=== PATIENT | male | born 2000 | race Caucasian/White ===

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

== ENCOUNTER 2022-11-29 05:12 | Emergency (ER) | payer SELFPAY ==
[2022-11-29] MEDS ORDERED: NA CHLORIDE 0.9% 1,000 ML ONE (05:59)
[2022-11-29] MEDS ORDERED: ONDANSETRON 4 MG/2 ML VIAL ONE (05:59)
--- NOTE | 2022-11-29 06:13 | ER ---
Nurse's Notes [facility] Name: Jacques Olivares Age: 22 yrs Sex: Male : 2000 Arrival Date: 11/29/2022 Time: 05:18 Bed 6 Private MD: Diagnosis: Diarrhea, unspecified;Vomiting Presentation: 11/29 05:29 Chief complaint: Patient states: My daughter was here a few days ago with similar kd3 symptoms and yall told us it was just a bug, so i may have gotten it from her. but i have been vomiting and i have been having loose stools for a couple of days. I also have a sharp pain in my upper stomach area. Ebola Screen: No symptoms or risks identified at this time. Risk Assessment: Do you want to hurt yourself or someone else? Patient reports no desire to harm self or others. Onset of symptoms was November 29, 2022. 05:29 Method Of Arrival: Ambulatory kd3 05:29 Acuity: IQRA 3 kd3 05:31 Coronavirus screen: Vaccine status: Patient reports being unvaccinated. kd3 06:44 Initial Sepsis Screen: Does the patient meet any 2 criteria? No. Patient's initial ll3 sepsis screen is negative. Does the patient have a suspected source of infection? No. Patient's initial sepsis screen is negative. Triage Assessment: 05:31 General: Appears in no apparent distress. Behavior is calm, cooperative. Pain: kd3 Complains of pain in epigastric area. Neuro: Level of Consciousness is awake, alert, obeys commands, Oriented to person, place, time, situation. Cardiovascular: Capillary refill < 3 seconds in bilateral fingers. GI: Reports diarrhea, vomiting. Historical: - Allergies: 05:31 No Known Allergies; kd3 - Home Meds: 05:31 None [Active]; kd3 - PMHx: 05:31 ADD/ADHD; kd3 - Immunization history:: Adult Immunizations up to date. - Social history:: Smoking status: Patient reports the use of cigarette tobacco products, smokes one pack cigarettes per day. Screenin:43 [facility] ED Fall Risk Assessment (Adult) History of falling in the last 3 months, ll3 including since admission No falls in past 3 months (0 pts) Score/Fall Risk Level 0 - 2 = Low Risk Oriented to surroundings, Maintained a safe environment. Abuse screen: Denies threats or abuse. Denies injuries from another. Nutritional screening: No deficits noted. Tuberculosis screening: No symptoms or risk factors identified. Assessment: 05:37 General: Appears uncomfortable, Behavior is calm, cooperative. Pain: Complains of pain ll3 in epigastric area Pain does not radiate. Pain currently is 2 out of 10 on a pain scale. Quality of pain is described as sharp, Pain began 2-3 days ago. Is continuous. Neuro: Level of Consciousness is awake, alert, obeys commands, Oriented to person, place, time, situation. GI: Reports upper abdominal pain, nausea, vomiting. GI: Abdomen is round non-distended. Derm: Skin is pink, warm \T\ dry. Vital Signs: 05:32 Weight 68.04 kg; Height 5 ft. 6 in. (167.64 cm); Pain 2/10; kd3 05:32 BP 133 / 94; Pulse 73; Resp 16; Temp 99; Pulse Ox 100% on R/A; kd3 06:44 BP 120 / 75; Pulse 62; Resp 17; Pulse Ox 100% on R/A; ll3 05:32 Body Mass Index 24.21 (68.04 kg, 167.64 cm) kd3 ED Course: 05:18 Patient arrived in ED. ja2 05:31 Triage completed. kd3 05:31 Arm band placed on. kd3 05:43 Tyler Boswell MD is Attending Physician. [facility] 05:58 Inserted saline lock: 18 gauge in left antecubital area, using aseptic technique. 06:43 Patient has correct armband on for positive identification. Placed in gown. Bed in low ll3 position. Call light in reach. Side rails up X 1. 06:43 No provider procedures requiring assistance completed. IV discontinued, intact, ll3 bleeding controlled, No redness/swelling at site. Pressure dressing applied. Administered Medications: 06:00 Drug: NS 0.9% 1000 ml Route: IV; Rate: 1 bolus; Site: right antecubital; ll3 06:38 Follow up: Response: No adverse reaction; IV Status: Completed infusion; IV Intake: ll3 1000ml 06:01 Drug: Zofran (Ondansetron) 4 mg Route: IVP; Site: right antecubital; ll3 06:38 Follow up: Response: No adverse reaction; Marked relief of symptoms ll3 Medication: 06:44 VIS not applicable for this client. ll3 Intake: 06:38 IV: 1000ml; Total: 1000ml. ll3 Outcome: 06:12 Discharge ordered by . claudette 06:43 Discharged to home ambulatory. ll3 06:43 Condition: improved 06:43 Discharge instructions given to patient, Instructed on discharge instructions, follow up and referral plans. medication usage, Demonstrated understanding of instructions, follow-up care, medications, Prescriptions given X 1. 06:45 Patient left the ED. ll3 Signatures: Faby Morris RN Tyler Gutiérrez MD MD cha Alexander, Jessica ja2 Loubet, Lynsea, RN RN ll3 Roxanne Basilio RN RN kd3 Corrections: (The following items were deleted from the chart) 05:31 05:29 Coronavirus screen: Vaccine status: Patient reports receiving the 2nd dose of the kd3 covid vaccine. kd3
--- NOTE | 2022-11-29 06:13 | EDPHYS ---
Physician Documentation [facility] Name: Jacques Olivares Age: 22 yrs Sex: Male : 2000 Arrival Date: 11/29/2022 Time: 05:18 Bed 6 Private MD: LEONEL Physician Tyler Boswell HPI: 11/29 06:09 This 22 yrs old Male presents to ER via Ambulatory with complaints of claudette Vomiting/Diarrhea, Abdominal Pain. 06:09 The patient presents to the emergency department with nausea, vomiting. Onset: The claudette symptoms/episode began/occurred 2 day(s) ago. Possible causes: unknown. The symptoms are aggravated by nothing. The symptoms are alleviated by remaining still. Associated signs and symptoms: Pertinent positives: abdominal pain, diarrhea, vomiting. Severity of symptoms: At their worst the symptoms were mild in the emergency department the symptoms are unchanged. The patient has not experienced similar symptoms in the past. sick daughter , similar. Historical: - Allergies: 05:31 No Known Allergies; kd3 - Home Meds: 05:31 None [Active]; kd3 - PMHx: 05:31 ADD/ADHD; kd3 - Immunization history:: Adult Immunizations up to date. - Social history:: Smoking status: Patient reports the use of cigarette tobacco products, smokes one pack cigarettes per day. ROS: 06:10 Constitutional: Negative for fever, chills, and weight loss, Eyes: Negative for injury, claudette pain, redness, and discharge, ENT: Negative for injury, pain, and discharge, Neck: Negative for injury, pain, and swelling, Cardiovascular: Negative for chest pain, palpitations, and edema, Respiratory: Negative for shortness of breath, cough, wheezing, and pleuritic chest pain, Back: Negative for injury and pain, : Negative for injury, bleeding, discharge, and swelling, MS/Extremity: Negative for injury and deformity, Skin: Negative for injury, rash, and discoloration, Neuro: Negative for headache, weakness, numbness, tingling, and seizure, Psych: Negative for depression, anxiety, suicide ideation, homicidal ideation, and hallucinations, Allergy/Immunology: Negative for hives, rash, and allergies, Endocrine: Negative for neck swelling, polydipsia, polyuria, polyphagia, and marked weight changes, Hematologic/Lymphatic: Negative for swollen nodes, abnormal bleeding, and unusual bruising. 06:10 Abdomen/GI: Positive for nausea and vomiting, diarrhea. Exam: 06:10 Constitutional: This is a well developed, well nourished patient who is awake, alert, claudette and in no acute distress. Head/Face: Normocephalic, atraumatic. Eyes: Pupils equal round and reactive to light, extra-ocular motions intact. Lids and lashes normal. Conjunctiva and sclera are non-icteric and not injected. Cornea within normal limits. Periorbital areas with no swelling, redness, or edema. ENT: Nares patent. No nasal discharge, no septal abnormalities noted. Tympanic membranes are normal and external auditory canals are clear. Oropharynx with no redness, swelling, or masses, exudates, or evidence of obstruction, uvula midline. Mucous membranes moist. Neck: Trachea midline, no thyromegaly or masses palpated, and no cervical lymphadenopathy. Supple, full range of motion without nuchal rigidity, or vertebral point tenderness. No Meningismus. Chest/axilla: Normal chest wall appearance and motion. Nontender with no deformity. No lesions are appreciated. Cardiovascular: Regular rate and rhythm with a normal S1 and S2. No gallops, murmurs, or rubs. Normal PMI, no JVD. No pulse deficits. Respiratory: Lungs have equal breath sounds bilaterally, clear to auscultation and percussion. No rales, rhonchi or wheezes noted. No increased work of breathing, no retractions or nasal flaring. Abdomen/GI: Soft, non-tender, with normal bowel sounds. No distension or tympany. No guarding or rebound. No evidence of tenderness throughout. Back: No spinal tenderness. No costovertebral tenderness. Full range of motion. Male : Normal genitalia with no discharge or lesions. Skin: Warm, dry with normal turgor. Normal color with no rashes, no lesions, and no evidence of cellulitis. MS/ Extremity: Pulses equal, no cyanosis. Neurovascular intact. Full, normal range of motion. Neuro: Awake and alert, GCS 15, oriented to person, place, time, and situation. Cranial nerves II-XII grossly intact. Motor strength 5/5 in all extremities. Sensory grossly intact. Cerebellar exam normal. Normal gait. Psych: Awake, alert, with orientation to person, place and time. Behavior, mood, and affect are within normal limits. Vital Signs: 05:32 Weight 68.04 kg; Height 5 ft. 6 in. (167.64 cm); Pain 2/10; kd3 05:32 BP 133 / 94; Pulse 73; Resp 16; Temp 99; Pulse Ox 100% on R/A; kd3 06:44 BP 120 / 75; Pulse 62; Resp 17; Pulse Ox 100% on R/A; ll3 05:32 Body Mass Index 24.21 (68.04 kg, 167.64 cm) kd3 MDM: 05:46 Patient medically screened. claudette 06:11 Differential diagnosis: Nonspecific abd pain, viral gastroenteritis, gastroenteritis. claudette Data reviewed: vital signs, nurses notes, lab test result(s), CBC, electrolytes, hepatic panel. Consideration of Admission/Observation Escalation of care including admission/observation considered. Care significantly affected by the following chronic conditions: add/adhd. 11/29 05:53 Order name: CBC with Diff claudette 11/29 05:53 Order name: Comprehensive Metabolic Panel claudette Administered Medications: 06:00 Drug: NS 0.9% 1000 ml Route: IV; Rate: 1 bolus; Site: right antecubital; ll3 06:38 Follow up: Response: No adverse reaction; IV Status: Completed infusion; IV Intake: ll3 1000ml 06:01 Drug: Zofran (Ondansetron) 4 mg Route: IVP; Site: right antecubital; ll3 06:38 Follow up: Response: No adverse reaction; Marked relief of symptoms ll3 Disposition Summary: 11/29/22 06:12 Discharge Ordered Location: Home claudette Problem: new claudette Symptoms: have improved claudette Condition: Stable claudette Diagnosis - Diarrhea, unspecified claudette - Vomiting claudette Followup: claudette - With: Private Physician - When: 2 - 3 days - Reason: Recheck today's complaints, Continuance of care, Re-evaluation by your physician Discharge Instructions: - Discharge Summary Sheet claudette - Diarrhea, Adult claudette - Diarrhea, Adult, [id number] claudette - Vomiting, Adult claudette Forms: - Medication Reconciliation Form claudette - Thank You Letter claudette - Antibiotic Education claudette - Prescription Opioid Use claudette - Work release form ll3 Prescriptions: - Zofran 4 mg Oral Tablet - take 1 tablet by ORAL route every 12 hours As needed; 20 tablet; Refills: 0, claudette Product Selection Permitted Signatures: Dispatcher [employer] Tyler Kwong MD MD cha Loubet, Lynsea, RN RN ll3 Roxanne Basilio RN RN kd3
[2022-11-29 06:16] LABS: Absolute Lymphocytes (CBC) 1.9 K/uL (0.7-4.9); Hematocrit 39.1 % (39.6-49.0); Lymphocytes % 32.2 % (15.3-44.8); MCV 86.6 fL (80-100); MPV 8.5 fL (7.6-11.3); RBC Red Blood Cell Count 4.52 M/uL (4.33-5.43)
[2022-11-29 06:33] LABS: Albumin 4.2 g/dL (3.4-5.0); Bilirubin Total 0.3 mg/dL (0.2-1.0); Potassium 3.8 mmol/L (3.5-5.1); Protein, Total 7.2 g/dL (6.4-8.2)
[2022-11-29 08:20] VITALS: TEMP 99; O2SAT 100
[2022-11-29 08:39] VITALS: BP 120/75
== END 2022-11-29 06:45 | disposition home or self-care (01) ==
LOC: ER 05:12
DX: R19.7 Diarrhea, unspecified (principal); R11.10 Vomiting, unspecified; F90.9 Attention-deficit hyperactivity disorder, unspecified type; F17.210 Nicotine dependence, cigarettes, uncomplicated
CPT/HCPCS: 36415; 80053; 85025; J2405; J7030

== ENCOUNTER 2024-08-22 09:24 | Emergency (ER) | payer OTHER, SELFPAY ==
--- NOTE | 2024-08-22 09:37 | EDPHYS ---
Physician Documentation [facility] Name: Jacques Olivares Age: 24 yrs Sex: Male : 2000 Arrival Date: 08/22/2024 Time: 09:24 Bed 17 Private MD: ED Physician Anupam Britt HPI: 08/22 09:34 This 24 yrs old Male presents to ER via Unassigned with complaints of Back Pain. kb 09:34 Pt is a 24 year old male who presents for back pain from thoracic to lumbar area that kb started years ago. 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 denies injury or trauma. Denies numbness, tingling, urinary symptosm. Historical: - Allergies: 09:34 No Known Allergies; ll1 - Home Meds: 09:34 None [Active]; ll1 - PMHx: 09:29 ADD/ADHD; ll1 - PSHx: 09:34 None; ll1 - Immunization history:: Adult Immunizations up to date. - Social history:: Smoking status: Patient reports the use of cigarette tobacco products, smokes .3 packs per day, Reported history of juuling and/or vaping. ROS: 09:33 Constitutional: As per HPI kb Exam: 09:33 Constitutional: This is a well developed, well nourished patient who is awake, alert, kb and in no acute distress. Head/Face: Normocephalic, atraumatic. ENT: Moist Mucous membranes Cardiovascular: Regular rate Respiratory: Respirations even and unlabored. No increased work of breathing. Talking in full sentences Abdomen/GI: Soft, non-tender. No distention Skin: Warm, dry with normal turgor. Normal color. MS/ Extremity: Pulses equal, no cyanosis. Neurovascular intact. Full, normal range of motion. Neuro: Awake and alert, GCS 15, oriented to person, place, time, and situation. Moves all extremities. Normal gait. 09:33 Back: pain, that is moderate, of the right subscapular area and right mid back, ROM is normal, normal spinal alignment noted, Vital Signs: 09:30 BP 144 / 74; Pulse 88; Resp 16; Temp 98.2; Pulse Ox 100% ; Weight 68.04 kg; Height 5 ll1 ft. 7 in. ; Pain 10/10; 09:52 BP 134 / 78; Pulse 87; Resp 18; Temp 98; Pulse Ox 99% on R/A; ph 09:30 Body Mass Index 23.49 (68.04 kg, 170.18 cm) ll1 09:30 Pain Scale: Adult ll1 MDM: 09:33 Differential diagnosis: chronic back pain, Ligament Injury Ureterolithiasis vertebral kb fracture, herniated disc. Data reviewed: vital signs, nurses notes. Test considered but Not performed: X-ray: xray throracic and lumbar spine considered but pt has no vertebral tenderness, no neuro deficits, no injury/trauma reported. Counseling: I had a detailed discussion with the patient and/or guardian regarding the historical points, exam findings, and any diagnostic results supporting the discharge/admit diagnosis, the need for outpatient follow up, a family practitioner, to return to the emergency department if symptoms worsen or persist or if there are any questions or concerns that arise at home. 09:36 Patient medically screened. kb Administered Medications: 09:48 Drug: Dexamethasone IM 10 mg IM once Route: IM; Site: right deltoid; ph 09:51 Follow up: Response: No adverse reaction ph 09:49 Drug: Ketorolac IM 30 mg IM once Route: IM; Site: right deltoid; ph 09:51 Follow up: Response: No adverse reaction ph Disposition Summary: 08/22/24 09:36 Discharge Ordered Notes: Location: Home kb Condition: Stable kb Diagnosis - Back pain kb Followup: kb - With: Emergency Department - When: As needed - Reason: Worsening of condition Followup: kb - With: Private Physician - When: 2 - 3 days - Reason: Recheck today's complaints, Continuance of care, Re-evaluation by your physician Discharge Instructions: - Discharge Summary Sheet kb - Chronic Back Pain, [id number] kb Forms: - Medication Reconciliation Form kb - Antibiotic Education kb - Prescription Opioid Use kb - Patient Portal Instructions kb - Leadership Thank You Letter kb - Work release form ll1 Prescriptions: - Diclofenac Sodium 75 mg Oral tablet, delayed release (enteric coated) - take 1 tablet ORAL route 2 times per day As needed; 30 tablet; Refills: 0, kb Product Selection Permitted - orphenadrine citrate 100 mg Oral Tablet Sustained Release - take 1 tablet ORAL route 2 times per day As needed; 20 tablet; Refills: 0, kb Product Selection Permitted Addendum: 08/24/2024 09:17 I was immediately available for consultation during this patient's visit. I did not e c2 personally see the patient or discuss the patient with the ABRAHAM. . Signatures: Josefina Penny, Julieta Alarcon RN RN Kuldip Patel RN RN ll1 Anupam Britt MD MD ec2
--- NOTE | 2024-08-22 09:37 | ER ---
Nurse's Notes [facility] Name: Jacques Olivares Age: 24 yrs Sex: Male : 2000 Arrival Date: 08/22/2024 Time: 09:24 Bed 17 Private MD: Diagnosis: Back pain Presentation: 08/22 09:30 Chief complaint: Patient states: Mid and low back pain for 1 week. Coronavirus screen: ll1 Client denies travel out of the [place] in the last 14 days. At this time, the client does not indicate any symptoms associated with coronavirus-19. Ebola Screen: Patient denies travel to an Ebola-affected area in the 21 days before illness onset. Initial Sepsis Screen: Does the patient meet any 2 criteria? No. Patient's initial sepsis screen is negative. Does the patient have a suspected source of infection? No. Patient's initial sepsis screen is negative. Risk Assessment: Do you want to hurt yourself or someone else? Patient reports no desire to harm self or others. Onset of symptoms was August 15, 2024. 09:30 Method Of Arrival: Ambulatory [facility] 09:30 Acuity: IQRA 4 ll1 Triage Assessment: 09:35 General: Appears uncomfortable, Behavior is calm, cooperative, appropriate for age. ll1 Pain: Complains of pain in back Pain currently is 10 out of 10 on a pain scale. Quality of pain is described as aching. Musculoskeletal: Reports pain in back. Historical: - Allergies: 09:34 No Known Allergies; ll1 - Home Meds: 09:34 None [Active]; ll1 - PMHx: 09:29 ADD/ADHD; ll1 - PSHx: 09:34 None; ll1 - Immunization history:: Adult Immunizations up to date. - Social history:: Smoking status: Patient reports the use of cigarette tobacco products, smokes .3 packs per day, Reported history of juuling and/or vaping. Screenin:49 [facility] ED Fall Risk Assessment (Adult) History of falling in the last 3 months, ph including since admission No falls in past 3 months (0 pts) Confusion or Disorientation No (0 pts) Intoxicated or Sedated No (0 pts) Impaired Gait No (0 pts) Mobility Assist Device Used No (0 pt) Altered Elimination No (0 pt) Score/Fall Risk Level 0 - 2 = Low Risk Oriented to surroundings, Maintained a safe environment, Hourly rounding (assess needs \T\ fall precautionary measures) done. Abuse screen: Denies threats or abuse. Denies injuries from another. Nutritional screening: No deficits noted. Tuberculosis screening: No symptoms or risk factors identified. Assessment: 09:50 General: Appears in no apparent distress. Behavior is calm, cooperative. Pain: ph Complains of pain in right mid back and right subscapular area. Neuro: Level of Consciousness is awake, alert, obeys commands, Oriented to person, place, time, situation. Cardiovascular: Capillary refill < 3 seconds in bilateral fingers Patient's skin is warm and dry. Derm: Skin is pink, warm \T\ dry. Musculoskeletal: Circulation, motion, and sensation intact. Range of motion: intact in all extremities. Vital Signs: 09:30 BP 144 / 74; Pulse 88; Resp 16; Temp 98.2; Pulse Ox 100% ; Weight 68.04 kg; Height 5 ll1 ft. 7 in. ; Pain 10/10; 09:52 BP 134 / 78; Pulse 87; Resp 18; Temp 98; Pulse Ox 99% on R/A; ph 09:30 Body Mass Index 23.49 (68.04 kg, 170.18 cm) ll1 09:30 Pain Scale: Adult ll1 ED Course: 09:27 Patient arrived in ED. ra3 09:28 Josef[facility] Penny [facility]C [facility]. kb 09:28 Anupam Britt MD is Attending Physician. kb 09:28 Arm band placed on Patient placed in an exam room, on a stretcher. ll1 09:35 Triage completed. ll1 09:37 Julieta Camilo, HOMERO is Primary Nurse. ph 09:50 Patient has correct armband on for positive identification. Bed in low position. Pulse ph ox on. NIBP on. Door closed. Noise minimized. 09:50 No provider procedures requiring assistance completed. Patient admitted, IV remains in ph place. Administered Medications: 09:48 Drug: Dexamethasone IM 10 mg IM once Route: IM; Site: right deltoid; ph 09:51 Follow up: Response: No adverse reaction ph 09:49 Drug: Ketorolac IM 30 mg IM once Route: IM; Site: right deltoid; ph 09:51 Follow up: Response: No adverse reaction ph Medication: 09:50 VIS not applicable for this client. ph Outcome: 09:36 Discharge ordered by MD. downey 09:51 Discharged to home ambulatory, ph 09:51 Condition: good 09:51 Discharge instructions given to patient, Instructed on discharge instructions, follow up and referral plans. medication usage, Demonstrated understanding of instructions, follow-up care, medications, Prescriptions given X 2, 09:52 Patient left the ED. ph Signatures: Josefina Penny, SENIOR PROPERTY ACCOUNTANT-C SENIOR PROPERTY ACCOUNTANT-Julieta Dan, RN RN ph Kuldip Morris RN RN ll1 Aide King 3
[2024-08-22] MEDS ORDERED: dexAMETHasone 10 MG/ML VIAL ONE (09:39)
[2024-08-22] MEDS ORDERED: KETOROLAC 30 MG/ML INJ ONE (09:40)
[2024-08-22 11:38] VITALS: BP 134/78; TEMP 98; O2SAT 99
== END 2024-08-22 09:52 | disposition home or self-care (01) ==
LOC: ER 09:24
DX: M54.9 Dorsalgia, unspecified (principal)
CPT/HCPCS: 96372; 99284; J1100